=== PATIENT | male | born 1990 | race Caucasian/White ===

== ENCOUNTER 2016-10-17 07:05 | Emergency (ER) | payer OTHER ==
--- NOTE | 2016-10-17 08:18 | ED CLINICAL REPORT ---
Clinical Report - Physicians/Mid Levels [facility] [address] [place] [address] 10/17/2016 7:09 Patient: BRIGITTE BLANK Time Seen: 07:26. Arrived- By private vehicle. Historian- patient. HISTORY OF PRESENT ILLNESS Chief Complaint: Injury to left leg. The injury happened just prior to arrival. The patient sustained a laceration (chainsaw). Occurred at work. Patient is experiencing moderate pain. No other injury. REVIEW OF SYSTEMS No chills, fever, sweats, calf pain or chest pain. No cough, difficulty breathing, pedal edema, palpitations or abdominal pain. No constipation, diarrhea, nausea, vomiting or urinary problems. All systems otherwise negative, except as recorded above. PAST HISTORY ( PCP - None). Tetanus immunization status is unknown. SOCIAL HISTORY Never smoker. No alcohol use or drug use. Residence: [facility]. FAMILY HISTORY No significant family medical history. ADDITIONAL NOTES The nursing notes have been reviewed. PHYSICAL EXAM Vital Signs: 10/17/2016 07:15 BP: 147/76. HR: 83. RR: 16. O2 saturation: 98%. Temp: 97.6 F. Pain level now: 6/10. Have been reviewed. Appearance: Alert. Head: Head atraumatic. Eyes: Pupils equal, round and reactive to light. ENT: Pharynx normal. Neck: Normal inspection. Neck supple. CVS: Normal heart rate and rhythm. Heart sounds normal. Respiratory: No respiratory distress. Breath sounds normal. Abdomen: No visible injury. Soft and nontender. Bowel sounds normal. No organomegaly. No mass. Back: ROM normal. Skin: Skin warm and dry. Normal skin color. Normal skin turgor. Extremities: Left thigh: 5.0 cm laceration and multiple small abrasions located in the mid thigh. SEE LACERATION PROCEDURE NOTE #1. Neurovascular intact distally. Extremities otherwise negative. Gait: Normal gait. Neuro, Vascular and Tendons: Vascular status intact. Sensation intact. Motor intact. Tendon function intact. Neuro: No motor deficit. No sensory deficit. PROGRESS AND PROCEDURES Laceration Repair: Location: left thigh. Time-out completed immediately before the procedure. Length: 5 cm. Complexity: simple (local anesthesia used and sutured). Wound depth/shape- subcutaneous and linear. Contamination present. Local anesthesia provided using 2% lidocaine no epi. Prepped with Betadine. Wound explored and cleansed extensively. Closure of superficial layer: interrupted 4-0 nylon (9 sutures). Post-procedure: he is stable and there are no complications. Bleeding is controlled. Dressing applied. Tetanus immunization given. Patient/family counseled. Old medical records ordered. Old records unavailable. Disposition: Discharged. Condition: stable. CLINICAL IMPRESSION Single superficial laceration to the left thigh. INSTRUCTIONS Protect wound and keep wound area clean. Change dressing twice daily. You may wash wounds briefly, then dry. Apply neosporin twice daily. For 10 days (no outdoor work until your sutures are removed). Warnings: COMPLICATIONS: Complications from this condition include: possible infection and possible foreign body remaining in the wound. Future problems may include infection, scarring and pain. INFECTION: Watch for signs of infection (increasing heat and redness, pus-like drainage, swelling, or increased pain). Return or see your doctor if these signs occur. TETANUS: You were given a tetanus shot during your visit. Make a note for future reference. GENERAL WARNINGS: Return or contact your physician immediately if your condition worsens or changes unexpectedly, if not improving as expected, or if other problems arise. Follow-up: Follow up with your doctor in ten days for suture removal. Understanding of the discharge instructions verbalized by patient. (Electronically signed by Sanket Baca MD 10/17/2016 8:36)
--- NOTE | 2016-10-17 08:18 | ED ORDER SUMMARY ---
..... Patient: BRIGITTE BLANK OrderSheet [facility] VisitID: [id number] [address] [place] [address] 26y, M Registration Date/Time: 10/17/2016 ORDER SHEET Weight: 95.2 kg (stated) Allergies: PCN GENERAL ORDERS: MEDICATION ORDERS: Tdap IM 0.5 mL (NOW, per protocol) (07:20 10/17/2016 Anna R.N. per protocol) (Ack 7:20 JBoardley R.N.) (7:31 JBoardley R.N.) IV FLUIDS: ORDER SHEET NOTES: [Electronically signed by Sanket Baca MD (08:36 10/17/2016)] [Electronically signed by Brigitte Cross R.N. (08:41 10/17/2016)] [Electronically locked/signed by Brigitte Cross R.N. (08:41 10/17/2016)]
--- NOTE | 2016-10-17 08:18 | ED CLINICAL REPORT ---
Clinical Report - Physicians/Mid Levels [facility] [address] [place] [address] 10/17/2016 7:09 Patient: BRIGITTE BLANK Time Seen: 07:26. Arrived- By private vehicle. Historian- patient. HISTORY OF PRESENT ILLNESS Chief Complaint: Injury to left leg. The injury happened just prior to arrival. The patient sustained a laceration (chainsaw). Occurred at work. Patient is experiencing moderate pain. No other injury. REVIEW OF SYSTEMS No chills, fever, sweats, calf pain or chest pain. No cough, difficulty breathing, pedal edema, palpitations or abdominal pain. No constipation, diarrhea, nausea, vomiting or urinary problems. All systems otherwise negative, except as recorded above. PAST HISTORY ( PCP - None). Tetanus immunization status is unknown. SOCIAL HISTORY Never smoker. No alcohol use or drug use. Residence: [facility]. FAMILY HISTORY No significant family medical history. ADDITIONAL NOTES The nursing notes have been reviewed. PHYSICAL EXAM Vital Signs: 10/17/2016 07:15 BP: 147/76. HR: 83. RR: 16. O2 saturation: 98%. Temp: 97.6 F. Pain level now: 6/10. Have been reviewed. Appearance: Alert. Head: Head atraumatic. Eyes: Pupils equal, round and reactive to light. ENT: Pharynx normal. Neck: Normal inspection. Neck supple. CVS: Normal heart rate and rhythm. Heart sounds normal. Respiratory: No respiratory distress. Breath sounds normal. Abdomen: No visible injury. Soft and nontender. Bowel sounds normal. No organomegaly. No mass. Back: ROM normal. Skin: Skin warm and dry. Normal skin color. Normal skin turgor. Extremities: Left thigh: 5.0 cm laceration and multiple small abrasions located in the mid thigh. SEE LACERATION PROCEDURE NOTE #1. Neurovascular intact distally. Extremities otherwise negative. Gait: Normal gait. Neuro, Vascular and Tendons: Vascular status intact. Sensation intact. Motor intact. Tendon function intact. Neuro: No motor deficit. No sensory deficit. PROGRESS AND PROCEDURES Laceration Repair: Location: left thigh. Time-out completed immediately before the procedure. Length: 5 cm. Complexity: simple (local anesthesia used and sutured). Wound depth/shape- subcutaneous and linear. Contamination present. Local anesthesia provided using 2% lidocaine no epi. Prepped with Betadine. Wound explored and cleansed extensively. Closure of superficial layer: interrupted 4-0 nylon (9 sutures). Post-procedure: he is stable and there are no complications. Bleeding is controlled. Dressing applied. Tetanus immunization given. Patient/family counseled. Old medical records ordered. Old records unavailable. Disposition: Discharged. Condition: stable. CLINICAL IMPRESSION Single superficial laceration to the left thigh. INSTRUCTIONS Protect wound and keep wound area clean. Change dressing twice daily. You may wash wounds briefly, then dry. Apply neosporin twice daily. For 10 days (no outdoor work until your sutures are removed). Warnings: COMPLICATIONS: Complications from this condition include: possible infection and possible foreign body remaining in the wound. Future problems may include infection, scarring and pain. INFECTION: Watch for signs of infection (increasing heat and redness, pus-like drainage, swelling, or increased pain). Return or see your doctor if these signs occur. TETANUS: You were given a tetanus shot during your visit. Make a note for future reference. GENERAL WARNINGS: Return or contact your physician immediately if your condition worsens or changes unexpectedly, if not improving as expected, or if other problems arise. Follow-up: Follow up with your doctor in ten days for suture removal. Understanding of the discharge instructions verbalized by patient. (Electronically signed by Sanket Baca MD 10/17/2016 8:36)
--- NOTE | 2016-10-17 08:18 | ED NURSING NOTES ---
Clinical Report - Nurses [facility] [address] [place] [address] 10/17/2016 7:09 Patient: BRIGITTE BLANK TRIAGE Triage time 07:15. Acuity: LEVEL 4. Chief Complaint: INJURY TO THE LEFT THIGH. 07:18 10/17/16. 07:18 10/17/16. Alert. No acute distress. SEPSIS SCREEN: Sepsis Screen. Negative (no infection suspected/documented). SHAI COMA SCORE: [place] Coma Scale: 15- eyes open spontaneously (4); best verbal response- oriented x 4 (5); best motor response- obeys commands (6). --07:19 Brigitte Cross R.N. 07:15 10/17/16. BP: 147/76. HR: 83. RR: 16. O2 saturation: 98% on room air. Temp: 97.6 F (oral). Pain level now: 10/20. --07:19 Brigitte Cross R.N. Weight: 95.2 kg stated. Height/Length: 70 inches Per Patient. BMI: 30.1. --07:16 Brigitte Cross R.N. Medications None. --07:18 Brigitte Cross R.N. Medication/allergy information source: the patient. --07:19 Brigitte Cross R.N. Allergies PCN. --07:18 Brigitte Cross R.N. History Arrived by private vehicle. Historian: patient. Accompanied by co-worker. Primary physician (NONE). 07:18 10/17/16. Occurred at work. He sustained a laceration (Chainsaw). No numbness, tingling or trouble walking. 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 PAST MEDICAL HX: Tetanus status: unknown. Immunizations not up to date. SOCIAL HX: Never smoker. No alcohol use or drug use. No infectious disease exposure. ABUSE ASSESSMENT: No report of abuse. FALL RISK ASSESSMENT: Fall risk assessment completed. No fall risk identified. NUTRITIONAL RISK ASSESSMENT: The nutritional risk assessment revealed no deficiencies. FUNCTIONAL ASSESSMENT: Functional assessment: no impairments noted. LEARNING NEEDS ASSESSMENT: The learning needs assessment revealed no barriers. SKIN INTEGRITY ASSESSMENT: Skin integrity risk assessment completed. No skin integrity risk identified. --07:19 Brigitte Cross R.N. This occurred today (0600). --07:19 Brigitte Cross R.N. PROBLEMS: Meningitis. --07:18 Brigitte Cross R.N. ADDITIONAL SURGERIES: Tonsillectomy. --07:18 Brigitte Cross R.N. Assessment 07:10/17/16. --07:19 Brigitte Cross R.N. Interventions 07:10/17/16. 07:10/17/16. ID and allergy band on patient. To treatment room. --07:19 Brigitte Cross R.N. PHYSICAL ASSESSMENT 07:10/17/16. Ambulatory to room. GENERAL / NEURO / PSYCH: Oriented X 4. Alert. Appears in no acute distress. EXTREMITIES: Capillary refill is less than 2 seconds in the extremities. Extremity pulses are within normal limits. Extremities exhibit normal ROM. Neuro-vascular status intact to the extremity. Normal gait. Left thigh: (dressing applied and intact). SKIN: Skin is warm and dry. --07:19 Brigitte Cross R.N. NURSING PROGRESS NOTES 07:10/17/16. The plan of care for this patient has been created. Cold pack applied. Patient gowned. Reassurance given. Two patient identifiers checked. Call light placed in reach. Side rails up x 2. Bed placed in lowest position. Brakes of bed on. --07:19 Brigitte Cross R.N. 07:10/17/16. Patient ready for evaluation- chart flagged and notification provided. --07:19 Brigitte Cross R.N. 07:26 10/17/2016 TDAP IM 0.5 mL given. (Lot#: [id number], expiration date: 09/20/2018, Applications Instructor: sanofi pasteur). Given in the left deltoid. Allergies verified and confirmed 5 rights. Vaccine information statement provided to the patient. --07:31 Brigitte Cross R.N. 07:59 10/17/16. ( Assisting MD with lac repair). --07:59 Brigitte Cross R.N. 08:13 10/17/16. ( 9 Sutures placed by ). --08:13 Brigitte Cross R.N. DISPOSITION / DISCHARGE 08:34 10/17/16. Condition at departure: improved. The goals identified in the patient's plan of care were met. ( Pt aware to follow up with PCP/Walk in clinic in 10 days for wound check and suture removal). No learning barriers present. Discharge instructions provided and reviewed with the patient. Reviewed warnings. Reviewed medication(s). Treatments reviewed. Patient verbalized understanding. Written instructions provided in Nepalese. The patient was discharged by the physician. He was discharged home and accompanied by studio technician video operator. He left the Emergency Department ambulatory and via private vehicle. Shotblaster driving. FALL RISK ASSESSMENT: Fall risk assessment completed. No fall risk identified. --08:34 Brigitte Cross R.N. 08:33 10/17/16. BP: 134/75. HR: 72. RR: 14. O2 saturation: 99% on room air. Temp: 98.2 F (oral). Pain level now: 0/10. --08:34 Brigitte Cross R.N. 08:35 10/17/16. Departure time: 08:35. --08:35 Brigitte Cross R.N. Locked/Released at 10/17/2016 8:41 by Brigitte Cross R.N.
--- NOTE | 2016-10-17 08:18 | ED ORDER SUMMARY ---
..... Patient: BRIGITTE BLANK OrderSheet [facility] VisitID: [id number] [address] [place] [address] 26y, M Registration Date/Time: 10/17/2016 ORDER SHEET Weight: 95.2 kg (stated) Allergies: PCN GENERAL ORDERS: MEDICATION ORDERS: Tdap IM 0.5 mL (NOW, per protocol) (07:20 10/17/2016 Anna R.N. per protocol) (Ack 7:20 JBoardley R.N.) (7:31 JBoardley R.N.) IV FLUIDS: ORDER SHEET NOTES: [Electronically signed by Sanket Baca MD (08:36 10/17/2016)] [Electronically signed by Brigitte Cross R.N. (08:41 10/17/2016)] [Electronically locked/signed by Brigitte Cross R.N. (08:41 10/17/2016)]
--- NOTE | 2016-10-17 08:18 | ED NURSING NOTES ---
Clinical Report - Nurses [facility] [address] [place] [address] 10/17/2016 7:09 Patient: BRIGITTE BLANK TRIAGE Triage time 07:15. Acuity: LEVEL 4. Chief Complaint: INJURY TO THE LEFT THIGH. 07:18 10/17/16. 07:18 10/17/16. Alert. No acute distress. SEPSIS SCREEN: Sepsis Screen. Negative (no infection suspected/documented). SHAI COMA SCORE: [place] Coma Scale: 15- eyes open spontaneously (4); best verbal response- oriented x 4 (5); best motor response- obeys commands (6). --07:19 Brigitte Cross R.N. 07:15 10/17/16. BP: 147/76. HR: 83. RR: 16. O2 saturation: 98% on room air. Temp: 97.6 F (oral). Pain level now: 10/20. --07:19 Brigitte Cross R.N. Weight: 95.2 kg stated. Height/Length: 70 inches Per Patient. BMI: 30.1. --07:16 Brigitte Cross R.N. Medications None. --07:18 Brigitte Cross R.N. Medication/allergy information source: the patient. --07:19 Brigitte Cross R.N. Allergies PCN. --07:18 Brigitte Cross R.N. History Arrived by private vehicle. Historian: patient. Accompanied by co-worker. Primary physician (NONE). 07:18 10/17/16. Occurred at work. He sustained a laceration (Chainsaw). No numbness, tingling or trouble walking. 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 PAST MEDICAL HX: Tetanus status: unknown. Immunizations not up to date. SOCIAL HX: Never smoker. No alcohol use or drug use. No infectious disease exposure. ABUSE ASSESSMENT: No report of abuse. FALL RISK ASSESSMENT: Fall risk assessment completed. No fall risk identified. NUTRITIONAL RISK ASSESSMENT: The nutritional risk assessment revealed no deficiencies. FUNCTIONAL ASSESSMENT: Functional assessment: no impairments noted. LEARNING NEEDS ASSESSMENT: The learning needs assessment revealed no barriers. SKIN INTEGRITY ASSESSMENT: Skin integrity risk assessment completed. No skin integrity risk identified. --07:19 Brigitte Cross R.N. This occurred today (0600). --07:19 Brigitte Cross R.N. PROBLEMS: Meningitis. --07:18 Brigitte Cross R.N. ADDITIONAL SURGERIES: Tonsillectomy. --07:18 Brigitte Cross R.N. Assessment 07:10/17/16. --07:19 Brigitte Cross R.N. Interventions 07:10/17/16. 07:10/17/16. ID and allergy band on patient. To treatment room. --07:19 Brigitte Cross R.N. PHYSICAL ASSESSMENT 07:10/17/16. Ambulatory to room. GENERAL / NEURO / PSYCH: Oriented X 4. Alert. Appears in no acute distress. EXTREMITIES: Capillary refill is less than 2 seconds in the extremities. Extremity pulses are within normal limits. Extremities exhibit normal ROM. Neuro-vascular status intact to the extremity. Normal gait. Left thigh: (dressing applied and intact). SKIN: Skin is warm and dry. --07:19 Brigitte Cross R.N. NURSING PROGRESS NOTES 07:10/17/16. The plan of care for this patient has been created. Cold pack applied. Patient gowned. Reassurance given. Two patient identifiers checked. Call light placed in reach. Side rails up x 2. Bed placed in lowest position. Brakes of bed on. --07:19 Brigitte Cross R.N. 07:10/17/16. Patient ready for evaluation- chart flagged and notification provided. --07:19 Brigitte Cross R.N. 07:26 10/17/2016 TDAP IM 0.5 mL given. (Lot#: [id number], expiration date: 09/20/2018, Cash Office Worker: sanofi pasteur). Given in the left deltoid. Allergies verified and confirmed 5 rights. Vaccine information statement provided to the patient. --07:31 Brigitte Cross R.N. 07:59 10/17/16. ( Assisting MD with lac repair). --07:59 Brigitte Cross R.N. 08:13 10/17/16. ( 9 Sutures placed by ). --08:13 Brigitte Cross R.N. DISPOSITION / DISCHARGE 08:34 10/17/16. Condition at departure: improved. The goals identified in the patient's plan of care were met. ( Pt aware to follow up with PCP/Walk in clinic in 10 days for wound check and suture removal). No learning barriers present. Discharge instructions provided and reviewed with the patient. Reviewed warnings. Reviewed medication(s). Treatments reviewed. Patient verbalized understanding. Written instructions provided in Belgian. The patient was discharged by the physician. He was discharged home and accompanied by assembler 1st shift. He left the Emergency Department ambulatory and via private vehicle. Piano Mover driving. FALL RISK ASSESSMENT: Fall risk assessment completed. No fall risk identified. --08:34 Brigitte Cross R.N. 08:33 10/17/16. BP: 134/75. HR: 72. RR: 14. O2 saturation: 99% on room air. Temp: 98.2 F (oral). Pain level now: 0/10. --08:34 Brigitte Cross R.N. 08:35 10/17/16. Departure time: 08:35. --08:35 Brigitte Cross R.N. Locked/Released at 10/17/2016 8:41 by Brigitte Cross R.N.
--- NOTE | 2016-10-17 08:41 | ED MED RECONCILIATION SUMMARY ---
Patient: BRIGITTE BLANK Medication Reconciliation Report [facility] VisitID: [id number] [address] [place] [address] 26y, M Registration Date/Time: 10/17/2016 Weight: 95.2 kg Height/Length: 70 in. BMI: 30.1 ALLERGIES: PCN The patient's Home Medications are listed below: NONE. The source(s) of the original Home Medication information: patient The following Medications were given to the patient in the Emergency Department: TDAP [IM] IM 0.5 mL, administered: 10/17/2016 7:26:00 AM The following Medications were prescribed to the patient: None.
--- NOTE | 2016-10-17 08:41 | ED DISCHARGE INSTRUCTIONS ---
Patient: BRIGITTE BLANK General Instructions [facility] VisitID: [id number] [place] [address] 26y, M Registration Date/Time: 10/17/2016 Single superficial laceration to the left thigh. INSTRUCTIONS Protect wound and keep wound area clean. Change dressing twice daily. You may wash wounds briefly, then dry. Apply neosporin twice daily. For 10 days (no outdoor work until your sutures are removed). Warnings: COMPLICATIONS: Complications from this condition include: possible infection and possible foreign body remaining in the wound. Future problems may include infection, scarring and pain. INFECTION: Watch for signs of infection (increasing heat and redness, pus-like drainage, swelling, or increased pain). Return or see your doctor if these signs occur. TETANUS: You were given a tetanus shot during your visit. Make a note for future reference. GENERAL WARNINGS: Return or contact your physician immediately if your condition worsens or changes unexpectedly, if not improving as expected, or if other problems arise. Follow-up: Follow up with your doctor in ten days for suture removal. Understanding of the discharge instructions verbalized by patient. ADDITIONAL INFORMATION Laceration, Extremity (Sutures, [employer], Or Tape) A laceration is a cut through the skin. This will usually require stitches (sutures) or jocelyne if it is deep. Minor cuts may be treated with surgical tape closures. Home care The following guidelines will help you care for your laceration at home: Keep the wound clean and dry. If a bandage was applied and it becomes wet or dirty, replace it. Otherwise, leave it in place for the first 24 hours, then change it once a day or as directed. If stitches or jocelyne were used, clean the wound daily: After removing the bandage, wash the area with soap and water. Use a wet cotton swab to loosen and remove any blood or crust that forms. After cleaning, keep the wound clean and dry. Talk with your doctor before applying any antibiotic ointment to the wound. Reapply the bandage. You may remove the bandage to shower as usual after the first 24 hours, but do not soak the area in water (no swimming) until the stitches or jocelyne are removed. If surgical tape closures were used, keep the area clean and dry. If it becomes wet, blot it dry with a towel. The doctor may prescribe an antibiotic cream or ointment to prevent infection. Do not stop taking this medication until you have finished the prescribed course or the doctor tells you to stop. The doctor may also prescribe medications for pain. Follow the doctors instructions for taking these medications. If you have chronic liver or kidney disease or ever had a stomach ulcer or GI bleeding, talk with your doctor before using these medicines. Follow-up care Follow up with your health care provider. Most skin wounds heal within ten days. However, an infection may sometimes occur despite proper treatment. Therefore, check the wound daily for the signs of infection listed below. Stitches and jocelyne should be removed within 714 days. If surgical tape closures were used, you may remove them after 10 days, if they have not fallen off by then. Notify your doctor if you notice persistent numbness or weakness in the injured extremity. (Note:A radiologist will review any X-rays that were taken. We will notify you of any new findings that may affect your care.) When to seek medical care Get prompt medical attention if any of these occur: Increasing pain in the wound Redness, swelling, or pus coming from the wound Fever of 100.4F (38C) or higher, or as directed by your health care provider If stitches or jocelyne come apart or fall out before your next appointment If the surgical tape closures fall off within seven days, or the wound edges re-open Bleeding not controlled by direct pressure Bandage Change If the bandage becomes wet or dirty, replace it. Otherwise, leave it in place for the first 24 hours. Then once a day: After removing the bandage, wash the area with soap and water. Use a wet cotton swab to loosen and remove any blood or crust that forms on the wound. After cleaning, apply a thin layer of antibiotic ointment or cream. Reapply the bandage. You may shower as usual after the first 24 hours. If the bandage is on an arm or leg, cover it with a plastic bag rubber banded at both ends before showering. No tub baths or swimming until the bandage is removed and the wound healed (at least 7 days). Laceration: Will There Be A Scar? A laceration is a cut through one or more layers of the skin. The goal of emergency treatment is to clean the wound and close it to prevent infection, control bleeding and speed healing. Cuts heal because the body is able to repair the skin by "sealing" the edges together with collagen, a kind of "skin cement." How deep your cut is, its location on your body, your age and the way your skin heals all determine how visible the final scar will be. Some persons tend to heal with more scar tissue than others. This cut will probably heal similar to other cuts you have had in the past. What You Can Do: There are a few simple things that you can do to limit the amount of scar that forms: 1) PREVENT INFECTION: An infected wound makes a bigger scar. Keep the wound clean and dry. Change the dressing and apply any ointment/cream as directed. 2) MASSAGE THE WOUND:After the stitches have been removed: Use a moisturizing cream or lotion containing Aloe or Vitamin E Oil and gently massage the skin around the wound with your fingertips (wash your hands first!). Do this twice a day for the first two weeks, then once a day for a month. This will increase the flow of oxygen and blood to the wound and prevent excess scar tissue from building up. 3) AVOID SUN EXPOSURE: During the first six months, avoid sun exposure since the scar may mina a much darker color than the skin around it. When in the sun, use SPF #50 (or greater) sun block on the scar, or cover the area with a hat or clothing. What To Expect: -- The cut will be sealed within 2 days and will be strong within 5-10 days. However, it will take at least SIX MONTHS for it to be fully healed. -- During the FIRST THREE MONTHS, you may notice the scar line getting more red or purple in color. The scar may become raised. The skin around the wound may feel thick and lumpy. -- During the FOURTH TO SIXTH MONTHS, this process begins to reverse. The red and purple color will fade, the scar line flattens, and the skin around it feels more normal. -- In most cases, the way the scar line looks after six months is the way it will remain, although there may be some continued improvement up to one year after the injury. Is There Anything Else That Can Be Done? If you do not like the way the scar looks after six months, a plastic surgeon may be able to perform a "scar revision." If you have any questions or problems as your wound heals, contact your doctor or this facility. We will be glad to assist you. Diphtheria Toxoid Adsorbed, Pertussis Vaccine, Acellular (Adsorbed), Tetanus Toxoid, Adsorbed Suspension for injection What is this medicine? DIPHTHERIA and TETANUS TOXOIDS; PERTUSSIS VACCINE (dif THEER ee uh and TET n us TOK soids; per TUS iss vak SEEN) is used to prevent diphtheria, tetanus, and pertussis infections. How should I use this medicine? This vaccine is for injection into a muscle. It is given by a health care associate. A copy of Vaccine Information Statements will be given before each vaccination. Read this sheet carefully each time. The sheet may change frequently. Talk to your fire prevention officer regarding the use of this vaccine in children. While the DTP vaccine may be given to children ages 6 weeks to 7 years and the Tdap vaccine may be given to children at least 10 years old, precautions do apply. What side effects may I notice from receiving this medicine? Side effects that you should report to your doctor or health care associate as soon as possible: allergic reactions like skin rash, itching or hives, swelling of the face, lips, or tongue breathing problems fever of 103 degrees F or more flu-like symptoms inconsolable crying infection pain, tingling, numbness in the hands or feet seizures swelling of arm or leg that was injected unusually weak or tired Side effects that usually do not require immediate medical attention (report these side effects to your doctor or health care associate if they continue or are bothersome): fussy, irritable loss of appetite fever of 102 degrees F or less pain, tenderness, redness, swelling, or a 'knot' at site where injected vomiting What may interact with this medicine? immune globulin medicines that suppress your immune function like adalimumab, anakinra, infliximab medicines to treat cancer medicines that treat or prevent blood clots like warfarin, enoxaparin, and dalteparin steroid medicines like prednisone or cortisone What if I miss a dose? It is important not to miss your dose. Call your doctor or health care associate if you are unable to keep an appointment. Where should I keep my medicine? This drug is given in a hospital or clinic and will not be stored at home. What should I tell my health care provider before I take this medicine? They need to know if you have any of these conditions: blood disorders like hemophilia fever or infection immune system problems neurologic disease seizures an unusual or allergic reaction to vaccines, thimerosal, latex, other medicines, foods, dyes, or preservatives or trying to get breast-feeding What should I watch for while using this medicine? See your health care provider for all shots of this vaccine as directed. To have protection from infection, you must have 3 shots of this vaccine plus boosters as needed. Tell your doctor right away if you have any serious or unusual side effects after getting this vaccine. You have been given the following additional information: Laceration, Extrem (Suture, Staple, Or Tape) Dressing Change Laceration, How To Minimize Scar Diphtheria Toxoid Adsorbed, Pertussis Vaccine, Acellular (Adsorbed), Tetanus Toxoid, Adsorbed Suspension for injection For 10 days (no outdoor work until your sutures are removed). (Electronically signed by Sanket Baca MD 10/17/2016 8:36)
--- NOTE | 2016-10-17 08:41 | ED MAR SUMMARY ---
..... Medication Administration Record [facility] [address] [place] [address] Patient: JOSÉ MIGUEL BLANK Visit ID: [id number] 26y, M Weight: 95.2 kg Height/Length: 70 in BMI: 30.1 ALLERGIES: PCN Given 07:26 10/17/2016 José Miguel Cross R.N. Medication Administered: TDAP [IM], Dose: 0.5 mL IM. Medication Ordered: Tdap IM 0.5 mL (NOW, per protocol).
--- NOTE | 2016-10-17 08:41 | ED MED RECONCILIATION SUMMARY ---
Patient: BRIGITTE BLANK Medication Reconciliation Report [facility] VisitID: [id number] [address] [place] [address] 26y, M Registration Date/Time: 10/17/2016 Weight: 95.2 kg Height/Length: 70 in. BMI: 30.1 ALLERGIES: PCN The patient's Home Medications are listed below: NONE. The source(s) of the original Home Medication information: patient The following Medications were given to the patient in the Emergency Department: TDAP [IM] IM 0.5 mL, administered: 10/17/2016 7:26:00 AM The following Medications were prescribed to the patient: None.
--- NOTE | 2016-10-17 08:41 | ED MAR SUMMARY ---
..... Medication Administration Record [facility] [address] [place] [address] Patient: JOSÉ MIGUEL BLANK Visit ID: [id number] 26y, M Weight: 95.2 kg Height/Length: 70 in BMI: 30.1 ALLERGIES: PCN Given 07:26 10/17/2016 José Miguel Cross R.N. Medication Administered: TDAP [IM], Dose: 0.5 mL IM. Medication Ordered: Tdap IM 0.5 mL (NOW, per protocol).
== END 2016-10-17 08:35 | disposition home or self-care (01) ==
LOC: ED SRH 07:05
PROC: 0JQM0ZZ Repair Left Upper Leg Subcutaneous Tissue and Fascia, Open Approach (ICD-10-PCS; principal; 2016-10-17)
DX: S76.922A Laceration of unspecified muscles, fascia and tendons at thigh level, left thigh, initial encounter (principal); W29.3XXA Contact with powered garden and outdoor hand tools and machinery, initial encounter; Y93.H9 Activity, other involving exterior property and land maintenance, building and construction; Y99.0 Civilian activity done for income or pay; Z88.0 Allergy status to penicillin